=== PATIENT | male | born 1960 | race Caucasian/White ===

== ENCOUNTER 2019-09-07 06:15 | Inpatient (IN) | payer MEDICAID ==
[~2019-09-07] VITALS: Ht 175.3 cm; Wt 72.6 kg
--- NOTE | 2019-09-07 06:15 | NUR ---
NIKHIL HERNÁNDEZ, TRANSFERRED TO BED #12.
[2019-09-07] MEDS ORDERED: ONDANSETRON 4 MG/2 ML VIAL IVP ONE (06:20)
[2019-09-07] MEDS ORDERED: KETOROLAC 30 MG/ML VIAL IVP ONE (06:20)
[2019-09-07] MEDS ORDERED: NACL 0.9% 1,000 ML IV ONE (06:20)
--- NOTE | 2019-09-07 06:20 | NUR ---
ERMD AT PT'S BEDSIDE.
[2019-09-07 06:30] VITALS: BP 163/100
[2019-09-07] MEDS ORDERED: MORPHINE SULFATE 4 MG/ML SYR IVP ONE (06:30)
--- NOTE | 2019-09-07 06:37 | NUR ---
58 Y/O MALE BIBA ALS UNIT, C/O RIGHT LOWER BACK PAIN 10/. PAIN STARTED 2 HOURS PRIOR TO ARRIVAL TO ED, PER MATERIALS RESEARCH ENGINEER. PT STATES DIFFICULTY VOIDING. PT C/O N/V. BS ACTIVE X4 QUADRANTS. NO DIARRHEA NOTED. PT ENDORSED USING METHAMPHETAMINE OCCASIONALLY, UNABLE TO GIVE LAST TIME USED. ERMD MADE AWARE. WILL CONTINUE TO MONITOR.
[2019-09-07 06:42] LABS: BASOPHILS # (AUTO) 0.1 K/uL (0.00-0.22); BASOPHILS % (AUTO) 0.7 % (0.0-2.0); EOSINOPHILS # (AUTO) 0.1 K/uL (0-0.4); EOSINOPHILS % (AUTO) 0.6 % (0.0-4.0); HEMATOCRIT 45.1 % (36-52); HEMOGLOBIN 15.2 g/dL (12.0-18.0); LYMPHOCYTES # (AUTO) 1.2 K/uL (2.0-11.5); MEAN CORPUSCULAR HEMOGLOBIN 31 pg (27-31); MEAN CORPUSCULAR HGB CONC 34 g/dL (33-37); MEAN CORPUSCULAR VOLUME 92.1 fL (80-94); MONOCYTES # (AUTO) 1.1 K/uL (0.8-1.0); MONOCYTES % (AUTO) 12.6 % (1.7-9.3); NEUTROPHILS # (AUTO) 6.5 K/uL (1.8-7.7); NEUTROPHILS % (AUTO) 73.1 % (42.2-75.2); PLATELET COUNT (AUTO) 204 K/uL (140-450); RED CELL DISTRIBUTION WIDTH 12.9 % (11.6-13.7); WHITE BLOOD COUNT (AUTO) 8.9 K/uL (4.8-10.8)
--- NOTE | 2019-09-07 06:54 | NUR ---
PT. TAKEN TO CT.
[2019-09-07 07:00] LABS: ALBUMIN 3.9 g/dL (3.4-5.0); ASPARTATE AMINOTRANSFERASE 69 U/L (15-37); CARBON DIOXIDE 21.6 mmol/L (21-32); CHLORIDE 103 mmol/L (98-107); CREATININE 1.3 mg/dL (0.7-1.3); GFR ARICAN-AMERICAN 73 mL/min (>90); GLUCOSE 109 mg/dL (74-106); POTASSIUM 4.1 mmol/L (3.5-5.1); SODIUM SERUM 141 mmol/L (136-145); TOTAL BILIRUBIN 0.7 mg/dL (0.0-1.0); UREA NITROGEN, BLOOD 20 mg/dL (7-18)
[2019-09-07 07:01] LABS: APPEARANCE,URINE CLOUDY (CLEAR); BILIRUBIN,URINE 1+ (NEGATIVE); BLOOD, URINE 3+ (NEGATIVE); COLOR,URINE RED (YELLOW); LEUKOCYTE ESTERASE ,URINE NEGATIVE (NEGATIVE); NITRITE, URINE NEGATIVE (NEGATIVE); PH,URINE 7.5 (5.0-9.0); UGLUCOSE NEGATIVE (NEGATIVE)
--- NOTE | 2019-09-07 07:04 | NUR ---
PT RETURNED FROM CT. PT DENIES ANY PAIN. ERMD MADE AWARE. WILL CONTINUE TO MONITOR.
[2019-09-07 07:05] LABS: ANION GAP 20.5 (8-16)
--- NOTE | 2019-09-07 07:12 | NUR ---
RECEIVED REPORT FROM APRIL CAZARES. Addendum: 09/07/19 at 0726 by [facility] PATIENT DENIES PAIN AT THIS TIME.
[2019-09-07 07:14] LABS: RBC,URINE TOO NUMEROUS TO COUN /HPF (0-5); WBC,URINE 0-5 /HPF (0-5)
[2019-09-07 07:15] LABS: BARBITURATE, URINE NEG. ng/ml (NEG <=200); BENZODIAZEPINE, URINE NEG. ng/mL (NEG <=200); CANNABINOID, URINE NEG. ng/mL (NEG <=50); COCAINE, URINE NEG. ng/mL (NEG <=300); OPIATE, URINE NEG. ng/mL (NEG <=2000); PHENCYCLIDINE SCREEN,URINE NEG. ng/mL (NEG <=25)
--- NOTE | 2019-09-07 07:15 | NUR ---
Note ree in EDM - 09/07/19 at 0720 by NEO Patient discharged with v/s stable. Written and verbal after care instructions given and explained. Patient alert, oriented and verbalized understanding of instructions. Ambulatory with steady gait. All questions addressed prior to discharge. ID band removed. Patient advised to follow up with PMD. Rx of IBUPROFEN given. Patient educated on indication of medication including possible reaction and side effects. Opportunity to ask questions provided and answered.
--- NOTE | 2019-09-07 07:32 | NUR ---
Patient being evaluated by DR JIMENEZ at bedside.
--- NOTE | 2019-09-07 07:59 | NUR ---
US AT BEDSIDE.
--- NOTE | 2019-09-07 10:24 | NUR ---
RECEIVED REPORT FROM ER NURSE ANNMARIE. PATIENT IS A NEW ADMIT, ALERT, ORIENTED X4. PATIENT ARRIVED VIA GURNEY, AMBULATED TO THE BED WITH STEADY GAIT. ORIENTED TO THE ROOM AND STAFF. CALL LIGHT WITHIN REACH.
--- NOTE | 2019-09-07 10:24 | NUR ---
Patient will be admitted to care of DR QUICK. Admited to MS. Will go to room 105B. Belongings list completed. Report to KYRA CAZARES.
[2019-09-07] MEDS ORDERED: LORazepam 2 MG/ML VIAL IM/IVP PRN (10:30)
[2019-09-07] MEDS ORDERED: MORPHINE SULFATE 2 MG/ML SYR IVP PRN (10:30)
[2019-09-07] MEDS ORDERED: ONDANSETRON 4 MG/2 ML VIAL IM/IVP PRN (10:30)
[2019-09-07] MEDS ORDERED: NACL 0.9% 1,000 ML IV SCH (10:30)
[2019-09-07] MEDS ORDERED: HYDROcodone/APAP 5/325 MG 1 TAB TAB PO PRN (10:30)
[2019-09-07] MEDS ORDERED: DOCUSATE SODIUM 100 MG GELCAP PO PRN (10:30)
[2019-09-07] MEDS ORDERED: ACETAMINOPHEN 325 MG TAB PO PRN (10:30)
--- NOTE | 2019-09-07 10:57 | NUR ---
DISCHARGE PLANNIN58 Y/O MALE FROM HOME, WHO CAME DUE TO RIGHT BACK PAIN RADIATING TO FLANK AND RIGHT FRONT. NO SIGNIFICANT PAST MEDICAL HISTORY. SMOKER. INITIAL DIAGNOSIS OF CHOLECYSTITIS. LIPASE ON ADMISSION 75. GI CONSULT WITH DR WINTERS FOR DILATED GBD 2/2 TO PARTIAL OBSTRUCTING STONE. SURGICAL CONSULT WITH DR. WHEELER FOR EARLY ACUTE CHOLECYSTITIS. CT ABDOMEN SHOWED CHOLELITHIASIS WITH MILD GALLBLADDER THICKENING SUSPICIOUS FOR ACUTE CHOLECYSTITIS AND PARTIALLY OBSTRUCTING 2MM CALCULUS WITHIN THE RIGHT PROXIMAL URETER. CURRENT LABS INCLUDE WBC 8.9, H/H 15.2/45.1, BUN/CREA 20/1.3. ON NORCO AND MORPHINE PRN FOR PAIN. DC PLAN PENDING ON PATIENT'S RESPONSE TO TREATMENT.
[2019-09-07 11:05] LABS: PROTHROMBIN TIME 9.5 secs (10.8-13.4)
[2019-09-07 11:18] LABS: FREE T4 (FREE THYROXINE) 1.39 ng/dL (0.76-1.46); MAGNESIUM 1.7 mg/dL (1.8-2.4); PHOSPHORUS 1.8 mg/dL (2.5-4.9); THYROID STIMULATING HORMONE 3.13 uIU/mL (0.34-3.74)
--- NOTE | 2019-09-07 11:37 | NUR ---
DR. BAEZA AT BEDSIDE.
--- NOTE | 2019-09-07 13:30 | NUR ---
PATIENT ALERT AND VERBALLY RESPONSIVE. PATIENT AMBULATES TO THE BATHROOM WITH STEADY GAIT. NO S/S OF DISTRESS NOTED.
[2019-09-07] MEDS ORDERED: DEXT 5% / NACL 0.9% 500 ML IV SCH (14:05)
[2019-09-07] MEDS ORDERED: MAGNESIUM CHLORIDE 64 MG TABEC PO SCH (14:30)
[2019-09-07] MEDS ORDERED: TAMSULOSIN 0.4 MG CAP PO SCH (14:30)
[2019-09-07] MEDS ORDERED: SODIUM PHOSPHATE 15 MMOLE in NACL 0.9% 250 ML IV SCH (15:00)
[2019-09-07 16:00] VITALS: BP 164/100
--- NOTE | 2019-09-07 16:00 | NUR ---
PATIENT ALERT AND VERBALLY RESPONSIVE. PATIENT AMBULATES TO THE BATHROOM WITH STEADY GAIT. NO S/S OF DISTRESS NOTED. DENIES ANY DISCOMFORT.
[2019-09-07] MEDS ORDERED: METOPROLOL 25 MG TAB PO SCH (16:30)
[2019-09-07] MEDS: NACL 0.9% 1,000 ML IV SCH ×2 (16:36→22:14)
--- NOTE | 2019-09-07 18:56 | NUR ---
PATIENT IN STABLE CONDITION. WILL ENDORSE TO NIGHT NURSE.
[2019-09-07 19:00] VITALS: BP 151/91
--- NOTE | 2019-09-07 19:15 | NUR ---
RECEIVED BEDSIDE REPORT FROM DAY RN. PT IS AAOX4. ON ROOM AIR RESPIRATIONS ARE EQUAL AND UNLABORED. SKIN IS INTACT PER RN. IV ON R FA20G IVF PER ORDERS. C/C ABD PAIN. DX RENAL COLIC AND CHOLECYSTITIS. PT TO BE NPO FOR HIDA SCAN TOMORROW AT 0930 PT VERBALIZED UNDERSTANDING. POC DISCUSSED WITH PT. CALL LIGHT IS WITHIN REACH. WILL ROUND FREQUENTLY.
[2019-09-07] MEDS: metroNIDAZOLE 500 MG/NS PREMIX 100 ML IV SCH (20:10)
--- NOTE | 2019-09-07 20:10 | NUR ---
STARTED FLAGYL PER ORDERS. PATIENT VERBALIZED UNDERSTANDING REGARDING POC AND TO BE NPO AFTER MIDNIGHT FOR HIDA SCAN. NPO SIGN ON DOOR. GAVE JELLO PER REQUEST. CALL LIGHT IS WITHIN REACH.
[2019-09-07] MEDS ORDERED: ZOLPIDEM 5 MG TAB PO PRN (21:00)
--- NOTE | 2019-09-07 21:31 | NUR ---
ADMINISTERED PRN NORCO FOR ABD PAIN 03/14. PATIENT TOLERATED WELL. ALL NEEDS MET AT THIS TIME. WILL CONTINUE TO MONITOR.
[2019-09-07 23:25] VITALS: BP 150/95
--- NOTE | 2019-09-07 23:26 | NUR ---
VITAL SIGNS ARE WITHIN NORMAL LIMITS. ALL NEEDS MET AT THIS TIME. CALL LIGHT IS WITHIN REACH. WILL CONTINUE TO MONITOR.
--- NOTE | 2019-09-08 01:17 | NUR ---
PATIENT IS SLEEPING COMFORTABLY IN BED WITH EYES CLOSED. CHEST RISE AND FALL. SAFETY MEASURES ARE IN PLACE. CALL LIGHT IS WITHIN REACH.
--- NOTE | 2019-09-08 04:09 | NUR ---
PATIENT IS SLEEPING COMFORTABLY IN BED. CHEST RISE AND FALL. SAFETY MEASURES ARE IN PLACE. CALL LIGHT IS WITHIN REACH
[2019-09-08] MEDS: metroNIDAZOLE 500 MG/NS PREMIX 100 ML IV SCH (04:21)
[2019-09-08] MEDS ORDERED: TAMSULOSIN 0.4 MG CAP PO SCH (08:30)
[2019-09-08] MEDS ORDERED: METOPROLOL 25 MG TAB PO SCH (09:00)
[2019-09-08] MEDS ORDERED: MAGNESIUM CHLORIDE 64 MG TABEC PO SCH (09:00)
== END 2019-09-08 17:35 | disposition left against medical advice (07) ==
LOC: MED 06:15 → MTU 09:54
PROVIDERS: ADMIT General Practice; ATTEND General Practice
DX: K80.63 Calculus of gallbladder and bile duct with acute cholecystitis with obstruction (principal); E83.39 Other disorders of phosphorus metabolism; F17.210 Nicotine dependence, cigarettes, uncomplicated; E83.42 Hypomagnesemia; J45.909 Unspecified asthma, uncomplicated; Z60.2 Problems related to living alone; I10 Essential (primary) hypertension; F15.10 Other stimulant abuse, uncomplicated; N13.2 Hydronephrosis with renal and ureteral calculous obstruction; F15.19 Other stimulant abuse with unspecified stimulant-induced disorder; Z53.29 Procedure and treatment not carried out because of patient's decision for other reasons
CPT/HCPCS: 36415; 71045; 76705; 78445; 80053; 80305; 81001; 82150; 83036; 83605; 83690; 83735; 83880; 84100; 84439; 84443; 84484; 85025; 85610; 85730; 87040; 87081; 93005; 96361; 96365; 96375; 99285; G0482; J0694; J1885; J2270; J2405; J3490; J7030; J7060; Q0092